=== PATIENT | male | born 1960 | race Caucasian/White ===

== ENCOUNTER 2018-03-26 07:07 | Day surgery (SDC) | payer OTHER ==
[~2018-03-26 07:07] MED LIST: Buffered Lidocaine 0.9% SYRIN* 5 ML/SYR SYRINGE INTRADERM ONE
[2018-03-26] MEDS ORDERED: fentaNYL* 50 MCG/ML 2 ML VIAL (100 MCG VIAL) ONE (07:43)
[2018-03-26] MEDS ORDERED: Lidocaine 2% PF * 5 ML VIAL ONE (07:43)
[2018-03-26] MEDS ORDERED: Propofol* 10 MG/ML 20 ML BTL IV PUSH ONE (07:43)
[2018-03-26] MEDS ORDERED: Bupivacaine 0.25% SDV* 30 ML ONE (08:15)
[2018-03-26] MEDS ORDERED: Naloxone* 0.4 MG/ML 1 ML VIAL IV PRN (09:13)
[2018-03-26 09:18] VITALS: BP 133/89
--- NOTE | 2018-03-27 02:59 | OP ---
DATE OF OPERATION: 03/26/18 [facility] DATE OF : 58 SURGEON: Cole Olguin MD LEAD PONY RIDER: RENETTA Segura ANESTHESIOLOGIST: Dr. De La O. ANESTHESIA: Local MAC. PRE-OP DIAGNOSIS: Right carpal tunnel syndrome. POST-OP DIAGNOSIS: Right carpal tunnel syndrome. OPERATIVE PROCEDURE: Right open carpal tunnel release. INDICATIONS: Mk is 57. He has progressive carpal tunnel syndrome. We had talked about risks and benefits and he had wanted to proceed. ESTIMATED BLOOD LOSS: 1 mL. COMPLICATIONS: None. FINDINGS: See above and below. DESCRIPTION OF PROCEDURE: Mk was seen in the preoperative holding area. The correct site, side, and procedure were identified. We came back to the operating room where the arm was prepped and draped in the usual fashion. A time-out was performed. The arm was exsanguinated with the Esmarch and the tourniquet was inflated to 250 mmHg. I began by making an incision in the proximal palm in the typical location for an open carpal tunnel release. Dissection was carried down through the subcutaneous tissue and palmar fascia. The release was completed from distal to proximal, releasing the transverse carpal ligament just off the radial aspect of the hook of the hamate. Proximally, the subcutaneous tissue and fascia was released and retracted, and then the remainder of the transverse carpal ligament and distal antebrachial fascia was released to complete the release. The release was confirmed distally and proximally. There was no compression on the nerve, so we irrigated out the wound. Skin was closed with 4 -0 nylon suture. Soft dressings were applied. He was taken to the recovery room in stable condition. [id number] #: [id number] [facility]
== END 2018-03-26 09:18 | disposition home or self-care (01) ==
LOC: OREAST 07:07
PROVIDERS: ATTEND Orthopaedic Surgery Hand Surgery
DX: G56.01 Carpal tunnel syndrome, right upper limb (principal); F41.8 Other specified anxiety disorders; Z87.891 Personal history of nicotine dependence; L40.50 Arthropathic psoriasis, unspecified
CPT/HCPCS: J2704; J3010